=== PATIENT | male | born 1930 | race Caucasian/White ===

== ENCOUNTER 2017-08-25 22:15 | Inpatient (IN) | payer MEDICARE, MEDICAID ==
[~2017-08-25] VITALS: Ht 157.5 cm; Wt 77.1 kg
[2017-08-25 22:20] VITALS: BP 117/69
[2017-08-25 22:55] LABS: BASOPHILS % (AUTO) 0.6 % (0.0-2.0); HEMATOCRIT 34.2 % (42.0-52.0); HEMOGLOBIN 10.6 G/DL (14.2-18.0); LYMPHOCYTES % (AUTO) 29.7 % (20.0-45.0); MEAN CORPUSCULAR VOLUME 72 FL (80-99); MONOCYTES % (AUTO) 7.9 % (1.0-10.0); NEUTROPHILS % (AUTO) 57.7 % (45.0-75.0); PLATELET COUNT 138 K/UL (150-450); RED BLOOD COUNT 4.72 M/UL (4.70-6.10); RED CELL DISTRIBUTION WIDTH 13.1 % (11.6-14.8); WHITE BLOOD COUNT 7.6 K/UL (4.8-10.8)
[2017-08-25 23:11] LABS: ANION GAP 9 mmol/L (5-15); BLOOD UREA NITROGEN 19 mg/dL (7-18); CALCIUM 8.8 MG/DL (8.5-10.1); CARBON DIOXIDE 24 MMOL/L (21-32); CHLORIDE 94 MMOL/L (98-107); CREATININE 1.9 MG/DL (0.55-1.30); POTASSIUM 4.4 MMOL/L (3.5-5.1); SODIUM 127 MMOL/L (136-145)
[2017-08-25 23:13] LABS: INR 1.1 (0.9-1.1)
[2017-08-25 23:16] LABS: ALANINE AMINOTRANSFERASE 23 U/L (12-78); ALBUMIN 3.4 G/DL (3.4-5.0); ALKALINE PHOSPHATASE 74 U/L (46-116); ASPARTATE AMINO TRANSFERASE 21 U/L (15-37); BILIRUBIN,TOTAL 0.4 MG/DL (0.2-1.0)
[2017-08-26] VITALS (7 sets, daily range): BP systolic 111–142; BP diastolic 43–65
[2017-08-26 00:06] LABS: APPEARANCE,URINE CLEAR; BILIRUBIN, URINE NEGATIVE (NEGATIVE); COLOR,URINE PALE YELLOW; GLUCOSE, URINE (UA) NEGATIVE (NEGATIVE); KETONES,URINE NEGATIVE (NEGATIVE); LEUKOCYTE ESTERASE ,URINE NEGATIVE (NEGATIVE); NITRITE,URINE NEGATIVE (NEGATIVE); PH,URINE 6.5 (4.5-8.0); PROTEIN,URINE 2+ (NEGATIVE); UROBILINOGEN,URINE NORMAL MG/DL (0.0-1.0)
--- NOTE | 2017-08-26 01:51 | Emergency Room Report ---
History of Present Illness General Chief Complaint: Syncope Source: EMS Present Illness HPI Is an 86-year-old male with a blood pressure. He presents with chief complaint of altered mental status. Per his daughter, he was eating dinner and when she spoke to him he was unresponsive. She called 911. They laid him down on the ground and he continued unresponsive so they initiated CPR. Per his daughter, he was breathing and had a pulse. This lasted about 10 minutes. When he came to he was confused. He still continues here in the ER. At baseline he is alert oriented x3. Allergies: Coded Allergies: No Known Allergies (Unverified , 08/25/17) Patient History Past Medical History: see triage record, old chart reviewed, HTN Past Surgical History: none Pertinent Family History: none Social History: Denies: smoking Immunizations: other Reviewed Nursing Documentation: PMH: Agreed, PSxH: Agreed Nursing Documentation-PMH Hx Hypertension: Yes - heart attack x2, stent Review of Systems Eye: Denies: eye pain, blurred vision ENT: Denies: ear pain, nose congestion, throat swelling Respiratory: Denies: cough, shortness of breath Cardiovascular: Denies: chest pain, palpitations Gastrointestinal: Denies: abdominal pain, diarrhea, nausea, vomiting Musculoskeletal: Denies: back pain, joint pain Skin: Denies: rash Neurological: Denies: headache, numbness Endocrine: Denies: increased thirst, increased urine Hematologic/Lymphatic: Denies: easy bruising All Other Systems: negative except mentioned in HPI Physical Exam Vital Signs Date Time Temp Pulse Resp B/P (MAP) Pulse Ox O2 Delivery O2 Flow Rate FiO2 08/25/17 22:07 97.7 62 18 117/69 98 Room Air 97.7 vitals normal Sp02 EP Interpretation: reviewed, normal General Appearance: well appearing, no apparent distress, alert Head: normocephalic, atraumatic Eyes: bilateral eye PERRL, bilateral eye EOMI ENT: hearing grossly normal, normal pharynx Neck: full range of motion, supple, no meningismus Respiratory: chest non-tender, lungs clear, normal breath sounds Cardiovascular #1: regular rate, rhythm, no murmur Gastrointestinal: normal bowel sounds, non tender, no mass, no organomegaly, no bruit, non-distended Musculoskeletal: back normal, gait/station normal, normal range of motion Neurologic: alert, other - Confused. he doesn't know where He is Psychiatric: mood/affect normal Skin: warm/dry Medical Decision Making Diagnostic Impression: Primary Impression: Syncope Qualified Codes: R55 - Syncope and collapse ER Course patient with altered mus and syncope. Fili is that this This may be TIA, could be arrhythmias. No evidence of infection. after about 30 minutes to one hour, he is back to baseline. Initially, family wanted to have him transferred to [place] in a hospital where his primary care doctor's. He wanted to sign out AMA. I spoke with Dr. Jennings, . He recommended the patient be admitted here. He spoke with the family and they agreed to be admitted here. This will be admitted to the on-call Dr. Lab Results Impression labs unremarkable except for elevated creatinine EKG Diagnostic Results Rate: normal Rhythm: NSR ST Segments: no acute changes Rhythm Strip Diag. Results Rhythm Strip Time: 01:50 EP Interpretation: yes Rate: 60 Rhythm: NSR Chest X-Ray Diagnostic Results Chest X-Ray Diagnostic Results : Chest X-Ray Ordered: Yes # of Views/Limited/Complete: 1 View Indication: Other - altered EP Interpretation: Yes Interpretation: no consolidation, no effusion, no pneumothorax Impression: No acute disease Electronically Signed by: Trevor Moss MD CT/MRI/US Diagnostic Results CT/MRI/US Diagnostic Results : Imaging Test Ordered: CT head Impression Neg per radiologist. Last Vital Signs Date Time Temp Pulse Resp B/P (MAP) Pulse Ox O2 Delivery O2 Flow Rate FiO2 08/25/17 22:20 97.7 18 117/69 98 Room Air 97.7 08/25/17 22:07 62 Status: improved Disposition: ADMITTED INPATIENT Condition: Serious Scripts Unable to Obtain Active Prescriptions or Reported Meds Referrals: NOT CHOSEN LESLIE/,REFERRING (PCP) TREVOR MOSS M.D. Aug 26, 2017 01:51
[2017-08-26 08:47] LABS: BASOPHILS % (AUTO) 0.4 % (0.0-2.0); EOSINOPHILS % (AUTO) 3.6 % (0.0-3.0); HEMATOCRIT 33.2 % (42.0-52.0); HEMOGLOBIN 10.4 G/DL (14.2-18.0); LYMPHOCYTES % (AUTO) 32.3 % (20.0-45.0); MEAN CORPUSCULAR VOLUME 73 FL (80-99); MONOCYTES % (AUTO) 8.1 % (1.0-10.0); NEUTROPHILS % (AUTO) 55.6 % (45.0-75.0); PLATELET COUNT 143 K/UL (150-450); RED BLOOD COUNT 4.55 M/UL (4.70-6.10); RED CELL DISTRIBUTION WIDTH 12.9 % (11.6-14.8); WHITE BLOOD COUNT 6.6 K/UL (4.8-10.8)
[2017-08-26 08:53] LABS: ANION GAP 6 mmol/L (5-15); BLOOD UREA NITROGEN 18 mg/dL (7-18); CALCIUM 8.9 MG/DL (8.5-10.1); CARBON DIOXIDE 25 MMOL/L (21-32); CHLORIDE 102 MMOL/L (98-107); CREATININE 1.7 MG/DL (0.55-1.30); POTASSIUM 4.9 MMOL/L (3.5-5.1); SODIUM 133 MMOL/L (136-145)
--- NOTE | 2017-08-26 10:18 | Diagnostic Imaging Report ---
Indication: Altered mental status Technique: Contiguous 5 mm thick transaxial imaging of the head obtained in a Siemens Sensation [address] scanner. Soft tissue and bone windows generated. Automatic Exposure Control was utilized. Total Dose length Product (DLP): 1390.[address] Dose Index Volume (CTDIvol): 70.38 mGy Comparison: none Findings: There is mild prominence of the ventricles, basal cisterns, and cerebral sulci consistent with atrophy. Mild, nonspecific, white matter hypoattenuation is noted throughout the brain consistent with chronic small vessel disease. There is no midline shift, edema, acute hemorrhage, mass effect, or abnormal extra-axial fluid collections. Bones and extra osseous soft tissues are unremarkable. Impression: No acute intracranial bleed, mass effect or edema. Mild atrophy of the brain. Nonspecific white matter hypoattenuation probably due to chronic small vessel disease. The CT scanner at [facility] is accredited by the [employer] and the scans are performed using dose optimization techniques as appropriate to a performed exam including Automatic Exposure control.
--- NOTE | 2017-08-26 11:02 | Diagnostic Imaging Report ---
Indication: Dyspnea Comparison: None A single view chest radiograph was obtained. Findings: Interstitial opacities are somewhat prominent bilaterally. Heart size is normal. Bones are osteopenic. Degenerative changes of the thoracic spine noted. IMPRESSION: Interstitial edema versus pneumonitis suspected
--- NOTE | 2017-08-26 11:48 | History and Physical ---
History of Present Illness General Date patient seen: Aug 26, 2017 Reason for Hospitalization: Syncope Present Illness HPI This is an 86-year-old Farsi-speaking male with a PMH for HTN and CAD s/p stent placement who presented to the ED with altered mental status. Patient was found to be unresponsive during dinner with his daughter per his dtrs report. They laid him down on the ground and he continued to be unresponsive so they initiated CPR. Per his daughter, he was breathing and had a pulse. This lasted about 10 minutes. He was apparently still confused in the ED so he was admitted for further care. Allergies: Coded Allergies: No Known Allergies (Unverified , 08/25/17) Medication History Unable to Obtain Active Prescriptions or Reported Meds Patient History Limited by: language barrier History Provided By: Medical Record Healthcare decision maker Resuscitation status Full Code Advanced Directive on File Past Medical/Surgical History Past Medical/Surgical History: (1) HTN (hypertension) (2) CAD (coronary artery disease) Review of Systems All Other Systems: negative except mentioned in HPI Physical Exam General Appearance: WD/WN, no apparent distress HEENT: normocephalic, atraumatic Respiratory/Chest: lungs clear Cardiovascular/Chest: normal rate, regularly irregular Abdomen: non tender, soft Extremities: trace edema Skin Exam: warm/dry Neurologic: alert, responsive Last 24 Hour Vital Signs Date Time Temp Pulse Resp B/P (MAP) Pulse Ox O2 Delivery O2 Flow Rate FiO2 08/26/17 08:00 97.3 72 18 119/57 97 Room Air 08/26/17 08:00 87 08/26/17 04:00 68 08/26/17 04:00 97.7 67 18 111/58 99 Room Air 08/26/17 01:55 97.7 72 16 112/43 100 Room Air 97.7 08/26/17 01:44 72 16 112/43 100 Room Air 08/26/17 00:00 66 18 128/65 98 Room Air 08/25/17 22:20 97.7 18 117/69 98 Room Air 97.7 08/25/17 22:07 97.7 62 18 117/69 98 Room Air 97.7 Intake and Output 08/25/17 08/26/17 19:00 07:00 Intake Total 0 ml Output Total 300 ml Balance -300 ml Intake Oral 0 ml Output Urine Total 300 ml # Voids 1 Laboratory Tests Test 08/25/17 22:45 08/25/17 23:50 08/26/17 07:40 White Blood Count 7.6 K/UL (4.8-10.8) 6.6 K/UL (4.8-10.8) Red Blood Count 4.72 M/UL (4.70-6.10) 4.55 M/UL (4.70-6.10) L Hemoglobin 10.6 G/DL (14.2-18.0) L 10.4 G/DL (14.2-18.0) L Hematocrit 34.2 % (42.0-52.0) L 33.2 % (42.0-52.0) L Mean Corpuscular Volume 72 FL (80-99) L 73 FL (80-99) L Mean Corpuscular Hemoglobin 22.5 PG (27.0-31.0) L 22.8 PG (27.0-31.0) L Mean Corpuscular Hemoglobin Concent 31.0 G/DL (32.0-36.0) L 31.2 G/DL (32.0-36.0) L Red Cell Distribution Width 13.1 % (11.6-14.8) 12.9 % (11.6-14.8) Platelet Count 138 K/UL (150-450) L 143 K/UL (150-450) L Mean Platelet Volume 7.3 FL (6.5-10.1) 7.6 FL (6.5-10.1) Neutrophils (%) (Auto) 57.7 % (45.0-75.0) 55.6 % (45.0-75.0) Lymphocytes (%) (Auto) 29.7 % (20.0-45.0) 32.3 % (20.0-45.0) Monocytes (%) (Auto) 7.9 % (1.0-10.0) 8.1 % (1.0-10.0) Eosinophils (%) (Auto) 4.0 % (0.0-3.0) H 3.6 % (0.0-3.0) H Basophils (%) (Auto) 0.6 % (0.0-2.0) 0.4 % (0.0-2.0) Prothrombin Time 11.4 SEC (9.30-11.50) Prothromb Time International Ratio 1.1 (0.9-1.1) Activated Partial Thromboplast Time 31 SEC (23-33) Sodium Level 127 MMOL/L (136-145) L 133 MMOL/L (136-145) L Potassium Level 4.4 MMOL/L (3.5-5.1) 4.9 MMOL/L (3.5-5.1) Chloride Level 94 MMOL/L (98-107) L 102 MMOL/L (98-107) Carbon Dioxide Level 24 MMOL/L (21-32) 25 MMOL/L (21-32) Anion Gap 9 mmol/L (5-15) 6 mmol/L (5-15) Blood Urea Nitrogen 19 mg/dL (7-18) H 18 mg/dL (7-18) Creatinine 1.9 MG/DL (0.55-1.30) H 1.7 MG/DL (0.55-1.30) H Estimat Glomerular Filtration Rate mL/min (>60) mL/min (>60) Glucose Level 117 MG/DL (74-106) H 96 MG/DL (74-106) Calcium Level 8.8 MG/DL (8.5-10.1) 8.9 MG/DL (8.5-10.1) Total Bilirubin 0.4 MG/DL (0.2-1.0) Aspartate Amino Transf (AST/SGOT) 21 U/L (15-37) Alanine Aminotransferase (ALT/SGPT) 23 U/L (12-78) Alkaline Phosphatase 74 U/L (46-116) Total Protein 6.8 G/DL (6.4-8.2) Albumin 3.4 G/DL (3.4-5.0) Globulin 3.4 g/dL Albumin/Globulin Ratio 1.0 (1.0-2.7) Urine Color Pale yellow Urine Appearance Clear Urine pH 6.5 (4.5-8.0) Urine Specific [place] 1.010 (1.005-1.035) Urine Protein 2+ (NEGATIVE) H Urine Glucose (UA) Negative (NEGATIVE) Urine Ketones Negative (NEGATIVE) Urine Occult Blood 1+ (NEGATIVE) H Urine Nitrite Negative (NEGATIVE) Urine Bilirubin Negative (NEGATIVE) Urine Urobilinogen Normal MG/DL (0.0-1.0) Urine Leukocyte Esterase Negative (NEGATIVE) Urine RBC 0-2 /HPF (0 - 0) H Urine WBC 0-2 /HPF (0 - 0) Urine Squamous Epithelial Cells Few /LPF (NONE/OCC) Urine Bacteria Few /HPF (NONE) Troponin I 0.039 ng/mL (0.000-0.056) Height (Feet): 5 Height (Inches): 2.00 Weight (Pounds): 170 Medications Current Medications Medications (Trade) Dose Ordered Sig/Gabriel Route PRN Reason Start Time Stop Time Status Last Admin Dose Admin Acetaminophen (Tylenol) 650 mg Q6HR PRN ORAL Mild Pain/Temp > 100.5 08/26/17 04:15 09/25/17 04:14 08/26/17 11:15 Dextrose (Dextrose 50%) STAT PRN IV Hypoglycemia 08/26/17 04:15 09/25/17 04:14 Ondansetron HCl (Zofran) 4 mg Q6H PRN IVP Nausea & Vomiting 08/26/17 04:15 09/25/17 04:14 Sodium Chloride 1,000 ml @ 75 mls/hr [id number] IVLG 08/26/17 06:00 09/25/17 05:59 08/26/17 06:30 Assessment/Plan Problem List: (1) Syncope ICD Codes: R55 - Syncope and collapse SNOMED: 258157768 Qualifiers: Qualified Codes: R55 - Syncope and collapse (2) HTN (hypertension) ICD Codes: I10 - Essential (primary) hypertension SNOMED: 46068326 (3) CAD (coronary artery disease) ICD Codes: I25.10 - Atherosclerotic heart disease of [place] coronary artery without angina pectoris SNOMED: 40693921 (4) Acute encephalopathy Assessment & Plan: cardiac? neuro? ICD Codes: G93.40 - Encephalopathy, unspecified SNOMED: 01557110, 993915436 (5) Hyponatremia ICD Codes: E87.1 - Hypo-osmolality and hyponatremia SNOMED: 41440814 Assessment/Plan Dr. Villela called for cardio eval. Echo echo. Check trop. Resume home meds. Gentle IVF. Monitor closely. Monitor labs. DVT ppx with SCDs given low plt. Dr. Shah. ROQUE DIAZ Aug 26, 2017 11:48
--- NOTE | 2017-08-26 15:05 | Cardiac Electrophysiology PN ---
Subjective Subjective Pt seen and DW RN Dictated [id number] Objective Last 24 Hour Vital Signs Date Time Temp Pulse Resp B/P (MAP) Pulse Ox O2 Delivery O2 Flow Rate FiO2 08/26/17 12:00 62 08/26/17 12:00 98.2 64 19 121/58 97 Room Air 08/26/17 08:00 97.3 72 18 119/57 97 Room Air 08/26/17 08:00 87 08/26/17 04:00 68 08/26/17 04:00 97.7 67 18 111/58 99 Room Air 08/26/17 01:55 97.7 72 16 112/43 100 Room Air 97.7 08/26/17 01:44 72 16 112/43 100 Room Air 08/26/17 00:00 66 18 128/65 98 Room Air 08/25/17 22:20 97.7 18 117/69 98 Room Air 97.7 08/25/17 22:07 97.7 62 18 117/69 98 Room Air 97.7 Intake and Output 08/25/17 08/26/17 19:00 07:00 Intake Total 0 ml Output Total 300 ml Balance -300 ml Intake Oral 0 ml Output Urine Total 300 ml # Voids 1 Laboratory Tests Test 08/25/17 22:45 08/25/17 23:50 08/26/17 07:40 White Blood Count 7.6 K/UL (4.8-10.8) 6.6 K/UL (4.8-10.8) Red Blood Count 4.72 M/UL (4.70-6.10) 4.55 M/UL (4.70-6.10) L Hemoglobin 10.6 G/DL (14.2-18.0) L 10.4 G/DL (14.2-18.0) L Hematocrit 34.2 % (42.0-52.0) L 33.2 % (42.0-52.0) L Mean Corpuscular Volume 72 FL (80-99) L 73 FL (80-99) L Mean Corpuscular Hemoglobin 22.5 PG (27.0-31.0) L 22.8 PG (27.0-31.0) L Mean Corpuscular Hemoglobin Concent 31.0 G/DL (32.0-36.0) L 31.2 G/DL (32.0-36.0) L Red Cell Distribution Width 13.1 % (11.6-14.8) 12.9 % (11.6-14.8) Platelet Count 138 K/UL (150-450) L 143 K/UL (150-450) L Mean Platelet Volume 7.3 FL (6.5-10.1) 7.6 FL (6.5-10.1) Neutrophils (%) (Auto) 57.7 % (45.0-75.0) 55.6 % (45.0-75.0) Lymphocytes (%) (Auto) 29.7 % (20.0-45.0) 32.3 % (20.0-45.0) Monocytes (%) (Auto) 7.9 % (1.0-10.0) 8.1 % (1.0-10.0) Eosinophils (%) (Auto) 4.0 % (0.0-3.0) H 3.6 % (0.0-3.0) H Basophils (%) (Auto) 0.6 % (0.0-2.0) 0.4 % (0.0-2.0) Prothrombin Time 11.4 SEC (9.30-11.50) Prothromb Time International Ratio 1.1 (0.9-1.1) Activated Partial Thromboplast Time 31 SEC (23-33) Sodium Level 127 MMOL/L (136-145) L 133 MMOL/L (136-145) L Potassium Level 4.4 MMOL/L (3.5-5.1) 4.9 MMOL/L (3.5-5.1) Chloride Level 94 MMOL/L (98-107) L 102 MMOL/L (98-107) Carbon Dioxide Level 24 MMOL/L (21-32) 25 MMOL/L (21-32) Anion Gap 9 mmol/L (5-15) 6 mmol/L (5-15) Blood Urea Nitrogen 19 mg/dL (7-18) H 18 mg/dL (7-18) Creatinine 1.9 MG/DL (0.55-1.30) H 1.7 MG/DL (0.55-1.30) H Estimat Glomerular Filtration Rate mL/min (>60) mL/min (>60) Glucose Level 117 MG/DL (74-106) H 96 MG/DL (74-106) Calcium Level 8.8 MG/DL (8.5-10.1) 8.9 MG/DL (8.5-10.1) Total Bilirubin 0.4 MG/DL (0.2-1.0) Aspartate Amino Transf (AST/SGOT) 21 U/L (15-37) Alanine Aminotransferase (ALT/SGPT) 23 U/L (12-78) Alkaline Phosphatase 74 U/L (46-116) Total Protein 6.8 G/DL (6.4-8.2) Albumin 3.4 G/DL (3.4-5.0) Globulin 3.4 g/dL Albumin/Globulin Ratio 1.0 (1.0-2.7) Urine Color Pale yellow Urine Appearance Clear Urine pH 6.5 (4.5-8.0) Urine Specific [place] 1.010 (1.005-1.035) Urine Protein 2+ (NEGATIVE) H Urine Glucose (UA) Negative (NEGATIVE) Urine Ketones Negative (NEGATIVE) Urine Occult Blood 1+ (NEGATIVE) H Urine Nitrite Negative (NEGATIVE) Urine Bilirubin Negative (NEGATIVE) Urine Urobilinogen Normal MG/DL (0.0-1.0) Urine Leukocyte Esterase Negative (NEGATIVE) Urine RBC 0-2 /HPF (0 - 0) H Urine WBC 0-2 /HPF (0 - 0) Urine Squamous Epithelial Cells Few /LPF (NONE/OCC) Urine Bacteria Few /HPF (NONE) Troponin I 0.039 ng/mL (0.000-0.056) VINCENT NELSON Aug 26, 2017 15:04
--- NOTE | 2017-08-26 15:52 | Cardiology Report ---
APPROVED REPORT EXAM: Two-dimensional and M-mode echocardiogram with Doppler and color Doppler. INDICATION Syncope M-Mode DIMENSIONS IVSd1.4 (0.7-1.1cm)Left Atrium (MM)3.5 (1.6-4.0cm) LVDd4.6 (3.5-5.6cm)Aortic Root3.5 (2.0-3.7cm) PWd0.9 (0.7-1.1cm)Aortic Cusp Exc.2.0 (1.5-2.0cm) LVDs1.8 (2.5-4.0cm) PWs1.6 cm Normal left ventricular chamber size, systolic function and wall motion. Left ventricular ejection fraction estimated to be 55-60 %. Mild left ventricular hypertrophy. Anterior Echo-free space, may be due to pericardial fat or effusion. All other cardiac chamber sizes are within normal limits. Milld focal aortic valve sclerosis with adequate cusp excursion. Mildly thickened mitral valve leaflets with normal excursion. Mild mitral annulus and aortic root calcification. Pulmonic valve not well visualized. Normal tricuspid valve structure. IVC at normal size with / without physiologic collapse. A color flow and spectral Doppler study was performed and revealed: Mild aortic regurgitation. No mitral regurgitation. Mitral diastolic velocities suggest mild left ventricular dysfunction (Grade I ). Mild tricuspid regurgitation. Tricuspid systolic velocities suggests peak right ventricular systolic pressure of 39 mmHg,consistent with mild pulmonary hypertension. No pulmonic regurgitation present.
--- NOTE | 2017-08-26 21:01 | Infectious Diseases Prog Note ---
Assessment/Plan Problems: (1) Acute encephalopathy Assessment & Plan: cardiogenic VS neurogenic , S/P CPR, continue neuro check and consult neurology, cards is consulted (2) Aspiration pneumonia Assessment & Plan: due to the above, will start vancomycin and cefepime empiric coverage , and send blood culture , monitor CXR (3) CAD (coronary artery disease) Assessment & Plan: monitor trop, continue cardiac meds (4) Hyponatremia Assessment & Plan: suspect dehydration, contiue hydration, with close monitor of sodium level Subjective Allergies: Coded Allergies: No Known Allergies (Unverified , 08/25/17) Objective Vital Signs Last 24 Hour Vital Signs Date Time Temp Pulse Resp B/P (MAP) Pulse Ox O2 Delivery O2 Flow Rate FiO2 08/26/17 20:00 97.0 80 20 142/59 94 08/26/17 16:00 71 08/26/17 16:00 99.2 79 19 140/60 98 Room Air 08/26/17 12:00 62 08/26/17 12:00 98.2 64 19 121/58 97 Room Air 08/26/17 08:00 97.3 72 18 119/57 97 Room Air 08/26/17 08:00 87 08/26/17 04:00 68 08/26/17 04:00 97.7 67 18 111/58 99 Room Air 08/26/17 01:55 97.7 72 16 112/43 100 Room Air 97.7 08/26/17 01:44 72 16 112/43 100 Room Air 08/26/17 00:00 66 18 128/65 98 Room Air 08/25/17 22:20 97.7 18 117/69 98 Room Air 97.7 08/25/17 22:07 97.7 62 18 117/69 98 Room Air 97.7 Height (Feet): 5 Height (Inches): 2.00 Weight (Pounds): 170 Laboratory Tests Test 08/25/17 22:45 08/25/17 23:50 08/26/17 07:40 White Blood Count 7.6 K/UL (4.8-10.8) 6.6 K/UL (4.8-10.8) Red Blood Count 4.72 M/UL (4.70-6.10) 4.55 M/UL (4.70-6.10) L Hemoglobin 10.6 G/DL (14.2-18.0) L 10.4 G/DL (14.2-18.0) L Hematocrit 34.2 % (42.0-52.0) L 33.2 % (42.0-52.0) L Mean Corpuscular Volume 72 FL (80-99) L 73 FL (80-99) L Mean Corpuscular Hemoglobin 22.5 PG (27.0-31.0) L 22.8 PG (27.0-31.0) L Mean Corpuscular Hemoglobin Concent 31.0 G/DL (32.0-36.0) L 31.2 G/DL (32.0-36.0) L Red Cell Distribution Width 13.1 % (11.6-14.8) 12.9 % (11.6-14.8) Platelet Count 138 K/UL (150-450) L 143 K/UL (150-450) L Mean Platelet Volume 7.3 FL (6.5-10.1) 7.6 FL (6.5-10.1) Neutrophils (%) (Auto) 57.7 % (45.0-75.0) 55.6 % (45.0-75.0) Lymphocytes (%) (Auto) 29.7 % (20.0-45.0) 32.3 % (20.0-45.0) Monocytes (%) (Auto) 7.9 % (1.0-10.0) 8.1 % (1.0-10.0) Eosinophils (%) (Auto) 4.0 % (0.0-3.0) H 3.6 % (0.0-3.0) H Basophils (%) (Auto) 0.6 % (0.0-2.0) 0.4 % (0.0-2.0) Prothrombin Time 11.4 SEC (9.30-11.50) Prothromb Time International Ratio 1.1 (0.9-1.1) Activated Partial Thromboplast Time 31 SEC (23-33) Sodium Level 127 MMOL/L (136-145) L 133 MMOL/L (136-145) L Potassium Level 4.4 MMOL/L (3.5-5.1) 4.9 MMOL/L (3.5-5.1) Chloride Level 94 MMOL/L (98-107) L 102 MMOL/L (98-107) Carbon Dioxide Level 24 MMOL/L (21-32) 25 MMOL/L (21-32) Anion Gap 9 mmol/L (5-15) 6 mmol/L (5-15) Blood Urea Nitrogen 19 mg/dL (7-18) H 18 mg/dL (7-18) Creatinine 1.9 MG/DL (0.55-1.30) H 1.7 MG/DL (0.55-1.30) H Estimat Glomerular Filtration Rate mL/min (>60) mL/min (>60) Glucose Level 117 MG/DL (74-106) H 96 MG/DL (74-106) Calcium Level 8.8 MG/DL (8.5-10.1) 8.9 MG/DL (8.5-10.1) Total Bilirubin 0.4 MG/DL (0.2-1.0) Aspartate Amino Transf (AST/SGOT) 21 U/L (15-37) Alanine Aminotransferase (ALT/SGPT) 23 U/L (12-78) Alkaline Phosphatase 74 U/L (46-116) Total Protein 6.8 G/DL (6.4-8.2) Albumin 3.4 G/DL (3.4-5.0) Globulin 3.4 g/dL Albumin/Globulin Ratio 1.0 (1.0-2.7) Urine Color Pale yellow Urine Appearance Clear Urine pH 6.5 (4.5-8.0) Urine Specific [place] 1.010 (1.005-1.035) Urine Protein 2+ (NEGATIVE) H Urine Glucose (UA) Negative (NEGATIVE) Urine Ketones Negative (NEGATIVE) Urine Occult Blood 1+ (NEGATIVE) H Urine Nitrite Negative (NEGATIVE) Urine Bilirubin Negative (NEGATIVE) Urine Urobilinogen Normal MG/DL (0.0-1.0) Urine Leukocyte Esterase Negative (NEGATIVE) Urine RBC 0-2 /HPF (0 - 0) H Urine WBC 0-2 /HPF (0 - 0) Urine Squamous Epithelial Cells Few /LPF (NONE/OCC) Urine Bacteria Few /HPF (NONE) Troponin I 0.039 ng/mL (0.000-0.056) Current Medications Medications (Trade) Dose Ordered Sig/Gabriel Route PRN Reason Start Time Stop Time Status Last Admin Dose Admin Acetaminophen (Tylenol) 650 mg Q6HR PRN ORAL Mild Pain/Temp > 100.5 08/26/17 04:15 09/25/17 04:14 08/26/17 11:15 Aspirin (ASA) 81 mg DAILY ORAL 08/27/17 09:00 09/26/17 08:59 Atorvastatin Calcium (Lipitor) 10 mg BEDTIME ORAL 08/26/17 21:00 09/25/17 20:59 08/26/17 20:52 Dextrose (Dextrose 50%) STAT PRN IV Hypoglycemia 08/26/17 04:15 09/25/17 04:14 Ondansetron HCl (Zofran) 4 mg Q6H PRN IVP Nausea & Vomiting 08/26/17 04:15 09/25/17 04:14 Sodium Chloride 1,000 ml @ 75 mls/hr [id number] IVLG 08/26/17 06:00 09/25/17 05:59 08/26/17 06:30 Rossy Shell M.D. Aug 26, 2017 21:01
--- NOTE | 2017-08-26 21:15 | Consultation ---
DATE OF CONSULTATION: 08/26/2017 CARDIOLOGY CONSULTATION CONSULTING PHYSICIAN: Sriram Villela M.D. REFERRING PHYSICIAN: Fito Shah M.D. REASON FOR CONSULTATION: Altered mental status and dizziness in the patient with history of hypertension and coronary artery disease. HISTORY OF PRESENT ILLNESS: The patient is an 86-year-old [place]an gentleman with history of hypertension and coronary artery disease with history of prior stent placement at Hospital. The patient was found unresponsive during dinner with his daughter per daughter's report. They laid him down on the ground though he continued to be unresponsive, so they initiated CPR. Per the patient's daughter, he was breathing and he had a pulse, this lasted about 10 minutes. The patient was then brought to the emergency room and was admitted and Cardiology consultation was obtained for further evaluation and management. At the time of my evaluation, the patient is alert and responsive. Denies any chest pain or shortness of breath. When I asked him why he was brought to the hospital, he stated that he was dizzy. PAST MEDICAL HISTORY: 1. Hypertension. 2. Coronary artery disease with prior stent placement. 3. Dementia. SOCIAL HISTORY: He lives at home. Does not smoke or drink alcohol. FAMILY HISTORY: Noncontributory. REVIEW OF SYSTEMS: Thoroughly performed and was negative other than what was mentioned in the history of present illness. PHYSICAL EXAMINATION: VITAL SIGNS: Blood pressure is 121/58, pulse 64, respirations 18, and temperature 98.2 degrees. HEAD AND NECK: Shows no JVD. LUNGS: Clear. CARDIOVASCULAR: Shows regular S1 and S2 with no gallop or murmur. ABDOMEN: Soft. EXTREMITIES: A 1+ pitting edema. LABORATORY AND DIAGNOSTIC DATA: His labs show white count of 6.6, hemoglobin of 10.5, hematocrit of 33.5, and platelet count of 143,000. His sodium 133 and initially was 127, potassium of 4.9, BUN of 18, creatinine of 1.7, and glucose of 96. First troponin is negative. ASSESSMENT AND PLAN: 1. Syncope in the patient with history of coronary artery disease. The first troponin is negative. EKG showed sinus rhythm with right bundle-branch block and left anterior fascicular block, which is bifascicular block. We will watch the patient on telemetry as the patient is at risk of progression of the bifascicular block to complete heart block. We will get an echocardiogram for further evaluation. 2. Hyponatremia. Sodium of 127, currently on intravenous fluids. 3. Coronary artery disease with history of prior stent placement. We will completely rule out myocardial infarction protocol. We will get an echocardiogram. Start the patient on aspirin and Lipitor. Avoid beta-katina at this time. 4. 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 Thank you very much, Dr. Shah, for allowing me to participate in the care of this patient. Please do not hesitate to contact me for any questions regarding my evaluation. Sriram Villela M.D. DR: Loretta JOB#: [id number] CC:
[2017-08-26] MEDS ORDERED: Vancomycin 1gm/D5W 275ml IVPB ONE ×2 (22:00)
[2017-08-27] VITALS: BP 119/52
[2017-08-27] MEDS ORDERED: Cefepime HCl 2 GM in D5W 110 ML IVPB SCH ×2
[2017-08-27] MEDS ORDERED: Cefepime HCl 2 GM in D5W 55 ML IVPB SCH ×2
[2017-08-27 04:00] VITALS: BP 115/52
[2017-08-27 06:52] LABS: CHOLESTEROL 97 MG/DL (< 200); HDL CHOLESTEROL 53 MG/DL (40-60); TRIGLYCERIDES 62 MG/DL (30-150)
[2017-08-27 08:00] VITALS: BP 131/62
[2017-08-27] MEDS ORDERED: Aspirin Baby 81mg ORAL SCH (09:00)
--- NOTE | 2017-08-27 11:43 | Nephrology Progress Note ---
Assessment/Plan Problem List: (1) Syncope (2) HTN (hypertension) (3) CAD (coronary artery disease) (4) Acute encephalopathy Assessment: cardiac? neuro? (5) Hyponatremia Plan echo reviewed EF 55-60%. discuss with cardiology for clearance for discharge. d/w . Subjective Subjective comfortable. no acute events overnight. Objective Objective Last 24 Hour Vital Signs Date Time Temp Pulse Resp B/P (MAP) Pulse Ox O2 Delivery O2 Flow Rate FiO2 08/27/17 08:00 67 08/27/17 08:00 97.7 63 19 131/62 96 Room Air 08/27/17 04:00 98.1 59 18 115/52 95 Room Air 08/27/17 03:45 58 08/27/17 00:00 72 08/27/17 00:00 98.2 68 18 119/52 94 Room Air 08/26/17 20:00 97.0 80 20 142/59 94 08/26/17 16:00 71 08/26/17 16:00 99.2 79 19 140/60 98 Room Air 08/26/17 12:00 62 08/26/17 12:00 98.2 64 19 121/58 97 Room Air Intake and Output 08/26/17 08/27/17 19:00 07:00 Intake Total 1500 ml 1227.416 ml Output Total 8000 ml Balance 1500 ml -6772.584 ml Intake Oral 600 ml IV Total 900 ml 1227.416 ml Output Urine Total 8000 ml # Voids 3 Laboratory Tests 08/27/17 05:35: Troponin I 0.031, Pro-B-Type Natriuretic Peptide 694H, Triglycerides Level 62, Cholesterol Level 97, LDL Cholesterol 34, HDL Cholesterol 53, Cholesterol/HDL Ratio 1.8L Height (Feet): 5 Height (Inches): 2.00 Weight (Pounds): 170 General Appearance: no apparent distress Cardiovascular: normal rate, regular rhythm Respiratory/Chest: lungs clear Abdomen: non tender, soft Extremities: non-pitting Neurologic: alert ROQUE DIAZ Aug 27, 2017 11:43
[2017-08-27 12:00] VITALS: BP 138/69
--- NOTE | 2017-08-27 14:01 | Infectious Diseases Prog Note ---
Assessment/Plan Problems: (1) Acute encephalopathy Assessment & Plan: cardiogenic VS neurogenic , S/P CPR, continue neuro check , cards is following (2) Aspiration pneumonia Assessment & Plan: due to the above, continue vancomycin and cefepime empiric coverage , pending blood culture , monitor CXR, may switch to oral augmantin once ready to be discharged (3) CAD (coronary artery disease) Assessment & Plan: monitor trop, continue cardiac meds (4) Hyponatremia Assessment & Plan: suspect dehydration, contiue hydration, with close monitor of sodium level Subjective Constitutional: Reports: no symptoms HEENT: Reports: no symptoms Respiratory: Reports: dry cough Breasts: Reports: no symptoms Cardiovascular: Reports: no symptoms Gastrointestinal/Abdominal: Reports: no symptoms Genitourinary: Reports: no symptoms Neurologic: Reports: no symptoms Psychiatric: Reports: no symptoms Skin: Reports: no symptoms Endocrine: Reports: no symptoms Hematologic: Reports: no symptoms Allergies: Coded Allergies: No Known Allergies (Unverified , 08/25/17) Objective Vital Signs Last 24 Hour Vital Signs Date Time Temp Pulse Resp B/P (MAP) Pulse Ox O2 Delivery O2 Flow Rate FiO2 08/27/17 12:00 97.9 70 21 138/69 97 Room Air 08/27/17 08:00 67 08/27/17 08:00 97.7 63 19 131/62 96 Room Air 08/27/17 04:00 98.1 59 18 115/52 95 Room Air 08/27/17 03:45 58 08/27/17 00:00 72 08/27/17 00:00 98.2 68 18 119/52 94 Room Air 08/26/17 20:00 97.0 80 20 142/59 94 08/26/17 16:00 71 08/26/17 16:00 99.2 79 19 140/60 98 Room Air Height (Feet): 5 Height (Inches): 2.00 Weight (Pounds): 170 General Appearance: WD/WN, no acute distress HEENT: normocephalic, atraumatic, anicteric, mucous membranes moist Respiratory/Chest: chest wall non-tender, no respiratory distress, no accessory muscle use, decreased breath sounds, crackles/rales Cardiovascular: normal peripheral pulses, normal rate, regular rhythm, no gallop/murmur Abdomen: normal bowel sounds, soft, non tender, no organomegaly, non distended , no mass, no scars Extremities: no cyanosis, no clubbing Skin: no rash, no lesions, no ulcers Neurologic/Psychiatric: alert, responsive Lymphatic: no neck adenopathy, no groin adenopathy Laboratory Tests Test 08/27/17 05:35 Troponin I 0.031 ng/mL (0.000-0.056) Pro-B-Type Natriuretic Peptide 694 pg/mL (0-125) H Triglycerides Level 62 MG/DL (30-150) Cholesterol Level 97 MG/DL (< 200) LDL Cholesterol 34 mg/dL (<100) HDL Cholesterol 53 MG/DL (40-60) Cholesterol/HDL Ratio 1.8 (3.3-4.4) L Current Medications Medications (Trade) Dose Ordered Sig/Gabriel Route PRN Reason Start Time Stop Time Status Last Admin Dose Admin Acetaminophen (Tylenol) 650 mg Q6HR PRN ORAL Mild Pain/Temp > 100.5 08/26/17 04:15 09/25/17 04:14 08/26/17 11:15 Aspirin (ASA) 81 mg DAILY ORAL 08/27/17 09:00 09/26/17 08:59 08/27/17 08:46 Atorvastatin Calcium (Lipitor) 10 mg BEDTIME ORAL 08/26/17 21:00 09/25/17 20:59 08/26/17 20:52 Cefepime HCl 2 gm/ Dextrose 110 ml @ 220 mls/hr Q24H IVPB 08/27/17 00:00 09/03/17 00:00 08/27/17 01:11 Dextrose (Dextrose 50%) STAT PRN IV Hypoglycemia 08/26/17 04:15 09/25/17 04:14 Ondansetron HCl (Zofran) 4 mg Q6H PRN IVP Nausea & Vomiting 08/26/17 04:15 09/25/17 04:14 Vancomycin HCl (Vanco rx to dose) 1 ea DAILY PRN MISC Per rx protocol 08/26/17 21:00 09/25/17 20:59 Vancomycin/Sodium Chloride 250 ml @ 166.667 mls/hr Q24H IVPB 08/27/17 22:00 09/01/17 21:59 Rossy Shell M.D. Aug 27, 2017 14:01
[2017-08-27] MEDS ORDERED: ASPIR 8181 MG ORAL (15:39)
[2017-08-27] MEDS ORDERED: ATORVASTATIN CA10 MG ORAL (15:40)
[2017-08-27] MEDS ORDERED: AUGMENTIN 875-1 EAC1 ORAL (15:40)
[2017-08-27 16:00] VITALS: BP 131/70
--- NOTE | 2017-08-27 16:16 | Consultation ---
DATE OF CONSULTATION: 08/27/2017 INFECTIOUS DISEASES CONSULTATION CONSULTING PHYSICIAN: Rossy Shell M.D. REQUESTING PHYSICIAN: Fito Shah M.D. REASON FOR CONSULTATION: Aspiration pneumonia, recommendation for antibiotics treatment HISTORY OF PRESENT ILLNESS: The patient is an 86-year-old male with past medical history of hypertension, coronary artery disease status post stent was brought into the emergency room at [facility] for altered mental status. The patient was found to be altered and unresponsive at dinner time when he was eating with his daughter at home. So, they laid him down on the ground and he was unresponsive at that time when the paramedics arrived so they initiated CPR on him. The patient was breathing at that time and became awake , but was still confused and he was brought into the emergency room at [place] for further evaluation and management. The patient was altered at the time when he arrived to the emergency room. A chest x-ray showed interstitial infiltrate, suspicious for pneumonitis, and he had low-grade fever so Infectious Diseases consultation was requested for antibiotics treatment and further management. As of note, the patient is a poor historian, cannot provide good history. History was mainly obtained from the medical record. REVIEW OF SYSTEMS: Unable to obtain. The patient is poor historian. PAST MEDICAL HISTORY: Significant for hypertension, coronary artery disease status post stent. PAST SURGICAL HISTORY: He had a stent placement in the coronary arteries. MEDICATIONS: Please refer to MAR for further details. ALLERGIES: No known drug allergy. SOCIAL HISTORY: The patient lives at home with family, mainly daughter. No recent drugs, tobacco, or alcohol. He is unemployed. FAMILY HISTORY: Unable to obtain. PHYSICAL EXAMINATION: VITAL SIGN: Temperature 99.2 degrees, pulse 79, respirations 19, blood pressure 140/60, saturation 98% on room. GENERAL: This is an elderly male, lying in bed, altered, not in acute distress, does not follow command. HEENT: Normocephalic and atraumatic. Pupils are reactive to light. Moist oral mucosa. No exudate or thrush. NECK: Supple. No lymphadenopathy. CARDIOVASCULAR: Regular rate and rhythm. No murmur. No gallop. LUNGS: He had crackles and diminished breathing sounds at the bases. No wheezing. No rhonchi. ABDOMEN: Soft and distended. No organomegaly. No ascites. No rebound. EXTREMITIES: No edema. No cyanosis. LABORATORY AND DIAGNOSTIC DATA: Labs showed white count of 6.6, hemoglobin of 10.4, and platelet count of 143. BUN of 18 and creatinine of 1.7. Troponin of 0.039. IMAGING: Head CT scan on the 08/25/2017 showed no acute intracranial bleed, mass effect, or edema, mild atrophy of the brain. Chest x-ray showed interstitial edema versus pneumonitis suspected. ASSESSMENT AND RECOMMENDATION: 1. Acute encephalopathy, unclear etiology. Cardiogenic versus neurogenic, status post cardiopulmonary resuscitation. Continue neuro check. Consult Neurology if needed. Cardiology is consulted for further evaluation. 2. Aspiration pneumonia due to the above. We will start vancomycin and cefepime empiric coverage and send blood culture. Monitor chest x-ray. 3. Coronary artery disease, status post stent. Monitor troponin. Continue cardiac medications. 4. Hyponatremia, suspect dehydration. Continue fluids with close monitor of sodium level. Thank you for the consult. Infectious Diseases will continue to follow. Rossy Shell M.D. DR: Jorge JOB#: [id number] CC: KELTON
[2017-08-27] MEDS ORDERED: Vancomycin 750mg/NS 250ml IVPB SCH (22:00)
--- NOTE | 2017-08-27 22:16 | Consultation ---
History of Present Illness General Date patient seen: Aug 26, 2017 Chief Complaint: Syncope Present Illness HPI 86-year-old Farsi-speaking male with a PMH for HTN and CAD s/p stent placement who presented to the ED with altered mental status. Patient was found to be unresponsive during dinner with his daughter per his dtrs report. Allergies: Coded Allergies: No Known Allergies (Unverified , 08/25/17) Medication History Scheduled Amoxicillin/Potassium Clav 875-125* (Augmentin 875-125 Tablet*), 1 TAB ORAL Q12HR, (Reported) Aspirin* (Aspir 81*), 81 MG ORAL DAILY, (Reported) Atorvastatin Calcium* (Lipitor*), 10 MG ORAL BEDTIME, (Reported) Patient History History Provided By: Patient, Medical Record, PMD Healthcare decision maker Resuscitation status Full Code Advanced Directive on File Past Medical/Surgical History Past Medical/Surgical History: (1) CAD (coronary artery disease) (2) HTN (hypertension) (3) Acute encephalopathy (4) Hyponatremia (5) Aspiration pneumonia Review of Systems Psychiatric: Reports: prior hx, anxiety, depressed feelings Physical Exam General Appearance: no apparent distress, alert Neurologic: alert, oriented x 3, responsive, depressed affect Last 24 Hour Vital Signs Date Time Temp Pulse Resp B/P (MAP) Pulse Ox O2 Delivery O2 Flow Rate FiO2 08/27/17 16:00 97.7 83 19 131/70 98 Room Air 08/27/17 12:00 66 08/27/17 12:00 97.9 70 21 138/69 97 Room Air 08/27/17 08:00 67 08/27/17 08:00 97.7 63 19 131/62 96 Room Air 08/27/17 04:00 98.1 59 18 115/52 95 Room Air 08/27/17 03:45 58 08/27/17 00:00 72 08/27/17 00:00 98.2 68 18 119/52 94 Room Air Intake and Output 08/26/17 08/27/17 19:00 07:00 Intake Total 1500 ml 1227.416 ml Output Total 8000 ml Balance 1500 ml -6772.584 ml Intake Oral 600 ml IV Total 900 ml 1227.416 ml Output Urine Total 8000 ml # Voids 3 Laboratory Tests Test 08/27/17 05:35 Troponin I 0.031 ng/mL (0.000-0.056) Pro-B-Type Natriuretic Peptide 694 pg/mL (0-125) H Triglycerides Level 62 MG/DL (30-150) Cholesterol Level 97 MG/DL (< 200) LDL Cholesterol 34 mg/dL (<100) HDL Cholesterol 53 MG/DL (40-60) Cholesterol/HDL Ratio 1.8 (3.3-4.4) L Height (Feet): 5 Height (Inches): 2.00 Weight (Pounds): 170 Assessment/Plan Status: stable, progressing Darren Robles M.D. Aug 27, 2017 22:15
--- NOTE | 2017-08-29 15:30 | Cardiology Report ---
APPROVED REPORT EKG Measurement Heart [id number] Sinus rhythm with premature supraventricular complexes Right bundle branch block Left anterior fascicular block Bifascicular block Possible Lateral infarct, age undetermined Abnormal ECG
--- NOTE | 2017-08-30 12:12 | Discharge Summary ---
Discharge Summary Hospital Course Date of Admission Aug 26, 2017 at 00:25 Date of Discharge Aug 27, 2017 at 17:05 Admitting Diagnosis encephalopathy HPI Shai Barney is a 86 year old male who was admitted on Aug 26, 2017 at 00: 25 for Encephalopathy Hospital Course dc summary #[id number] Discharge Medications Continued Medications: Amoxicillin/Potassium Clav 875-125* (Augmentin 875-125 Tablet*) 1 Each Tablet 1 TAB ORAL Q12HR for 5 Days, TAB Aspirin* (Aspir 81*) 81 Mg Tablet.dr 81 MG ORAL DAILY, TAB Atorvastatin Calcium* (Lipitor*) 10 Mg Tablet 10 MG ORAL BEDTIME, TAB Discharge Condition Upon Discharge: stable Discharge Disposition Patient was discharged to Home (01) Discharge Diagnoses: Discharge Instructions Discharge Instructions Special Instructions I have been assigned to complete a D/C Summary on this account. I was not involved in the patient management Linda Bone NP (V[place]tein) Aug 30, 2017 12:12
--- NOTE | 2017-08-30 21:52 | Diagnostic Imaging Report ---
APPROVED REPORT CPT Code: 54479 Present Symptoms Comments: R/O DVT BILATERAL: Imaging reveals a patent deep venous system bilaterally. There is no evidence of thrombus within the femoral, popliteal or tibial segments. The greater saphenous veins are also within normal limits. Doppler indicates normal spontaneous flow within these segments.
--- NOTE | 2017-08-30 21:52 | Diagnostic Imaging Report ---
APPROVED REPORT CPT Code: 91310 Vascular Symptoms Syncope Comments: Tortuous carotid arteries, bilaterally Doppler Spectral Velocity Analysis RightLeft arteries. The Doppler spectral flow analysis indicates the degree of stenosis is minimal (10%) in the common carotid artery, mild (30%) in the internal carotid artery, and mild (30% - 50%) in the external carotid artery. VERTEBRAL- The vertebral artery is patent, without evidence of stenosis or steal. arteries. The Doppler spectral flow analysis indicates the degree of stenosis is minimal (10%) in the common carotid artery, (10%) in the internal carotid artery, and (10%) in the external carotid artery. VERTEBRAL- The vertebral artery was not well visualized.
--- NOTE | 2017-08-31 02:00 | Discharge Summary 2 SIG ---
DATE OF ADMISSION: 08/26/2017 DATE OF DISCHARGE: 08/27/2017 REASON FOR ADMISSION: 86 years old male with history of hypertension, coronary artery disease with stent placement, and dementia, presented to the emergency room with altered mental status. The patient was found to be unresponsive during dinner with his daughter. Patient was laid down on the ground but he continued to be unresponsive. Daughter initiated CPR. As per daughter, he was breathing and had pulse. Episode of unresponsiveness lasted about 10 minutes. Patient was still confused in the emergency department. Laboratory work was stable except elevated creatinine -1.9. No leukocytosis, stable electrolytes. CT of the head revealed no acute intracranial pathology. Troponin was negative. Sodium -127. Urinalysis was negative. Chest x-ray revealed no acute cardiopulmonary pathology. EKG revealed right bundle-branch block and left anterior fascicular block. The patient admitted to telemetry floor with diagnosis of syncope, acute encephalopathy, hyponatremia, hypertension, coronary artery disease. HOSPITAL COURSE: The patient was admitted. Cardiology and ID consults were requested. Home medications were resumed. The patient was started on gentle IV hydration. According to forestry contractor, the patient had syncope in the setting of coronary artery disease. First troponin was negative. Second troponin was negative. EKG revealed no acute ischemic changes. The patient was ruled out for acute myocardial infarction. EKG showed sinus rhythm with right bundle-branch block and left anterior fascicular block making it bifascicular block. The patient was carefully watched on the telemetry since the patient was at the high risk of progression from bifascicular block to complete heart block. Echocardiogram revealed preserved ejection fraction of 55% to 60% and right ventricular systolic pressure of 39 consistent with mild pulmonary hypertension as well as the evidence of mild left ventricular hypertrophy. Venous duplex bilateral lower extremities was negative. The patient was on the IV fluids with normal saline. Sodium from 127 up to 133 the next day, likely due to mild dehydration. Pro BNP - 694. The patient was started on aspirin and statin. Beta-katina was avoided at this time due to the bifascicular block. Infectious Disease doctor seen and evaluated the patient. Per ID, the patient likely had aspiration pneumonia. Patient was treated with IV antibiotics, which changed to oral upon discharged. CXR with evidence of mild interstitial edema versus pneumonitis, Supplemental oxygen and pulmonary toilet was provided as needed. DVT prophylaxis provided. Psychiatrist seen and evaluated the patient. Acute encephalopathy, which was likely due to syncopal episode, resolved. The patient was clinically improving. Grocery Checker cleared the patient for discharge home and follow up with the forestry contractor next week as outpatient. Due to the rapid and unexpected improvement in patient' s condition, the patient was discharged in one day. FINAL DIAGNOSES: 1. Syncopal episode, possibly due to the bifascicular block. 2. Acute encephalopathy, likely secondary to syncopal episode, resolved. 3. Acute hyponatremia ,resolved. 4. Coronary artery disease with history of prior stent. 5. 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 6. Dementia. 7. Hypertension. DISCHARGE MEDICATIONS: See medication reconciliation list. Hold beta-katina . DISCHARGE INSTRUCTIONS: The patient was discharged home. Follow up with the forestry contractor next week. Fito Shah M.D. I have been assigned to dictate discharge summary on this account and I was not involved in the patient's management. Linda TracyCrouse HospitalPriti N.PSanjuana DR: KESHAV JOB#: [id number] CC: KELTON
== END 2017-08-27 17:05 | disposition home or self-care (01) | DRG 308 ==
LOC: EDBD 22:15 → EMR 22:52 → 2E 08-26 00:25 → EDBEDREQ 08-26 01:34 → 2E 08-26 03:06
DX: I45.2 Bifascicular block (principal); J69.0 Pneumonitis due to inhalation of food and vomit; G93.40 Encephalopathy, unspecified; E87.1 Hypo-osmolality and hyponatremia; F03.90 Unspecified dementia, unspecified severity, without behavioral disturbance, psychotic disturbance, mood disturbance, and anxiety; I10 Essential (primary) hypertension; E86.0 Dehydration; I25.10 Atherosclerotic heart disease of native coronary artery without angina pectoris; Z98.61 Coronary angioplasty status
CPT/HCPCS: 36415; 70450; 71045; 80048; 80053; 80061; 81003; 82962; 83880; 84484; 85025; 85610; 85730; 87040; 93005; 93306; 93880; 93970; 99285